=== PATIENT | male | born 1965 | race Caucasian/White ===

== ENCOUNTER 2017-04-13 05:58 | Emergency (ER) | payer BC ==
[2017-04-13 06:45] VITALS: TEMP 98.1; BMI 44.9
--- NOTE | 2017-04-13 07:24 | PDOC ---
History of Present Illness - General Chief Complaint: Back Pain Stated Complaint: PAIN Time Seen by Provider: 04/13/17 07:09 History Source: Patient Exam Limitations: No Limitations - History of Present Illness Initial Comments: 51 yo M history HTN, kidney stones presents with abrupt onset R flank pain at 4: 30 am today. He states that it woke him from sleep. Pain was sharp, colicky, R flank, nonradiating. He states that when he arrived in the ED, the pain suddenly became much worse, then it suddenly stopped approximately 1 hour ago. Denies N/V/D, f/c. No other associated symptoms. He has had kidney stones in the past, this is similar to past symptoms. Past History - Past Medical History Allergies/Adverse Reactions: Allergies Allergy/AdvReac Type Severity Reaction Status Date / Time No Known Drug Allergies Allergy Verified 02/06/14 12:14 Home Medications: Ambulatory Orders Oxycodone HCl/Acetaminophen [Percocet 7.5-325 mg Tablet] 1 - 2 tab PO Q4H Anemia: No Asthma: No Cancer: No Cardiac Disorders: No CVA: No COPD: No CHF: No Dementia: No Diabetes: No GI Disorders: No Disorders: Yes (kidney stones) HTN: Yes Hypercholesterolemia: No Liver Disease: No Suicide Attempt (Hx): No Seizures: No Thyroid Disease: No - Surgical History Abdominal Surgery: No Appendectomy: No Cardiac Surgery: No Cholecystectomy: No Lung Surgery: No Neurologic Surgery: No Orthopedic Surgery: Yes (rt. knee sx) - Immunization History Immunization Up to Date: Yes - Psycho/Social/Smoking Cessation Hx Anxiety: No Suicidal Ideation: No Smoking History: Never smoked Have you smoked in the past 12 months: No Hx Alcohol Use: Yes (socially) Drug/Substance Use Hx: No Substance Use Type: None Hx Substance Use Treatment: No Review of Systems - Review of Systems Able to Perform ROS?: Yes Comments:: GENERAL/CONSTITUTIONAL: No fever or chills. No weakness. HEAD, EYES, EARS, NOSE AND THROAT: No change in vision. No ear pain or discharge. No sore throat. CARDIOVASCULAR: No chest pain or shortness of breath. RESPIRATORY: No cough, wheezing, or hemoptysis. GASTROINTESTINAL: No nausea, vomiting, diarrhea or constipation. GENITOURINARY: No dysuria, frequency, or change in urination. MUSCULOSKELETAL: No joint or muscle swelling or pain. No neck pain. +Back pain. SKIN: No rash NEUROLOGIC: No headache, vertigo, loss of consciousness, or change in strength/ sensation. ENDOCRINE: No increased thirst. No abnormal weight change. HEMATOLOGIC/LYMPHATIC: No anemia, easy bleeding, or history of blood clots. ALLERGIC/IMMUNOLOGIC: No hives or skin allergy. *Physical Exam - Vital Signs Last Vital Signs Temp Pulse Resp BP Pulse Ox 98.1 F 83 16 188/94 96 04/13/17 06:25 04/13/17 06:25 04/13/17 06:25 04/13/17 06:25 04/13/17 06:25 - Physical Exam Comments: GENERAL: Awake, alert, and fully oriented, in no acute distress HEAD: No signs of trauma EYES: PERRLA, EOMI, sclera anicteric, conjunctiva clear ENT: Auricles normal inspection, hearing grossly normal, nares patent, oropharynx clear without exudates. Moist mucosa NECK: Normal ROM, supple, no lymphadenopathy, JVD, or masses LUNGS: Breath sounds equal, clear to auscultation bilaterally. No wheezes, and no crackles HEART: Regular rate and rhythm, normal S1 and S2, no murmurs, rubs or gallops ABDOMEN: Soft, nontender, normoactive bowel sounds. No guarding, no rebound. No masses. No CVAT. EXTREMITIES: Normal range of motion, no edema. No clubbing or cyanosis. No cords, erythema, or tenderness NEUROLOGICAL: Cranial nerves II through XII grossly intact. Normal speech, normal gait SKIN: Warm, Dry, normal turgor, no rashes or lesions noted. ED Treatment Course - LABORATORY CBC & Chemistry Diagram: 04/13/17 08:08 Medical Decision Making - Medical Decision Making Pt presented with flank pain c/w prior history of kidney stones. Pain was similar to prior stone. Pain resolved shortly after arrival in ED, and has not returned. BMP shows normal kidney function. No dysuria, no hematuria. Stable for DC home. *DC/Admit/Observation/Transfer Diagnosis at time of Disposition: Acute flank pain - Discharge Dispostion Disposition: HOME Condition at time of disposition: Stable Admit: No - Patient Instructions Printed Discharge Instructions: DI for Flank Pain
[2017-04-13 08:42] LABS: ANION GAP 8 (8-16); CALCIUM 8.4 mg/dL (8.5-10.1); CO2 25 mmol/L (21-32); CREATININE 0.8 mg/dL (0.7-1.3); GLUCOSE,RANDOM 205 mg/dL (74-106)
[2017-04-13 09:20] VITALS: BP 155/98; PULSE 78
== END 2017-04-13 09:19 | disposition home or self-care (01) ==
LOC: JER 05:58
DX: R10.31 Right lower quadrant pain (principal); I10 Essential (primary) hypertension; Z87.442 Personal history of urinary calculi
CPT/HCPCS: 36415; 80048; 99282-25

== ENCOUNTER 2017-04-24 11:36 | Inpatient (IN) | payer BC ==
[2017-04-24 11:57] VITALS: BMI 44.9
[2017-04-24 12:52] LABS: EOSINOPHIL 1.2 % (0-4.5); MCH 31.9 pg (25.7-33.7); MCHC 34.5 g/dl (32.0-35.9); MEAN CELL VOLUME 92.3 fl (80-96); NEUTROPHILS 72.8 % (42.8-82.8); PLATELET COUNT 200 K/MM3 (134-434); WHITE BLOOD COUNT 7.2 K/mm3 (4.0-10.0)
[2017-04-24] MEDS ORDERED: VANCOMYCIN 1 GRAM (PRE-DOCKED) 250 ML IVPB ONE (12:52)
--- NOTE | 2017-04-24 13:03 | PDOC ---
History of Present Illness - General Chief Complaint: Redness To Affected Area Stated Complaint: WOUND CHECK Time Seen by Provider: 04/24/17 12:08 History Source: Patient Exam Limitations: No Limitations - History of Present Illness Initial Comments: 04/24/17 12:48 Patient is a 51-year-old male, history of hypertension untreated. Presents to the ER with redness, swelling, and drainage to the LLE. Was seen at [facility] MD is being treated for cellulitis, ? spider bite to the LLE. Symptoms started on 04/17 as a redness to the area. Patient failed two outpatient courses of antibiotics. Was treated with Bactrim twice a day and Kelfex 500 mg three times a day. Area was marked by the treating physician. Redness has not expanded past the area but area is spontaneously draining, warm and red. Was instructed by the MD at [facility] to come to the ER for IV antibiotics. Past Medical History: HTN. Allergies: No known allergies Medications: Bactrim and Keflex Family History: Non-contributory Social History: Denies smoking, alcohol use, or IVDU Review of Systems GENERAL/CONSTITUTIONAL: No fever or chills. No weakness. No weight change. HEAD, EYES, EARS, NOSE AND THROAT: No change in vision. No ear pain or discharge. No sore throat. CARDIOVASCULAR: No chest pain or shortness of breath. RESPIRATORY: No cough, wheezing, or hemoptysis. GASTROINTESTINAL: No nausea, vomiting, diarrhea or constipation. No rectal bleeding. GENITOURINARY: No dysuria, frequency, or change in urination. MUSCULOSKELETAL: No joint or muscle swelling or pain. No neck or back pain. SKIN : No rash or easy bruising. Erythema, induration to the LLE with central punctum. + drainage. NEUROLOGIC: No headache, vertigo, loss of consciousness, or loss of sensation. HEMATOLOGIC/LYMPHATIC: No anemia, easy bleeding, or history of blood clots. No lymphadenopathy ALLERGIC/IMMUNOLOGIC: No hives or skin allergy. No latex allergy. Physical Exam: GENERAL: The patient is awake, alert, and fully oriented, in no acute distress. EYES: Pupils equal, round and reactive to light, extraocular movements intact, sclera anicteric, conjunctiva clear. ENT: Ears normal, nares patent, oropharynx clear without exudates. Moist mucous membranes. No uvula deviation NECK: Normal range of motion, supple without lymphadenopathy, JVD, or masses. LUNGS: Breath sounds equal, clear to auscultation bilaterally. No wheezes, and no crackles. HEART: Regular rate and rhythm, normal S1 and S2 without murmur, rub or gallop. ABDOMEN: Soft, nontender, normoactive bowel sounds. No guarding, no rebound. No masses. No bruising or abrasions MUSCULOSKELETAL: Normal range of motion, no edema. No clubbing or cyanosis. No cords, erythema, or tenderness. No CVA Tenderness with fist. NEUROLOGICAL: Cranial nerves II through XII grossly intact. Normal speech, normal gait. PSYCH: Normal mood, normal affect. SKIN: Warm, erythematous, indurated area to the left lower extremity measuring 25 cm by 22 cm, central punctum with drainage. Past History - Past Medical History Allergies/Adverse Reactions: Allergies Allergy/AdvReac Type Severity Reaction Status Date / Time No Known Drug Allergies Allergy Verified 04/24/17 11:57 Home Medications: Ambulatory Orders Oxycodone HCl/Acetaminophen [Percocet 10-325 mg Tablet] 1 each PO PRN 04/24/17 Acetaminophen [Tylenol .Regular Strength -] 650 mg PO Q6H PRN #0 tablet Amoxicillin/Potassium Clav [Amox-Clav 875-125 mg Tablet] 1 each PO BID #15 tablet 04/26/17 Lisinopril [Prinivil] 20 mg PO DAILY #30 tablet 04/26/17 Metformin HCl [Glucophage -] 500 mg PO BID #60 tablet 04/26/17 Anemia: No Asthma: No Cancer: No Cardiac Disorders: No CVA: No COPD: No CHF: No Dementia: No Diabetes: No GI Disorders: No Disorders: Yes (kidney stones) HTN: Yes Hypercholesterolemia: No Liver Disease: No Suicide Attempt (Hx): No Seizures: No Thyroid Disease: No - Surgical History Abdominal Surgery: No Appendectomy: No Cardiac Surgery: No Cholecystectomy: No Lung Surgery: No Neurologic Surgery: No Orthopedic Surgery: Yes (rt. knee sx) - Immunization History Immunization Up to Date: Yes - Psycho/Social/Smoking Cessation Hx Anxiety: No Suicidal Ideation: No Smoking History: Never smoked Have you smoked in the past 12 months: No Hx Alcohol Use: Yes (SOCIAL) Drug/Substance Use Hx: No Substance Use Type: None Hx Substance Use Treatment: No *Physical Exam - Vital Signs Last Vital Signs Temp Pulse Resp BP Pulse Ox 98.2 F 110 H 20 164/105 97 04/24/17 11:49 04/24/17 11:49 04/24/17 11:49 04/24/17 11:49 04/24/17 11:49 ED Treatment Course - LABORATORY CBC & Chemistry Diagram: 04/26/17 05:35 04/26/17 05:35 Medical Decision Making - Medical Decision Making 04/24/17 13:03 A/P: Patient is a 51-year-old L, morbidly obese, history of hypertension untreated resents for evaluation of cellulitis questionable spider bite to left lower extremity. Has been on by mouth antibiotics Keflex and Bactrim and symptoms are persisting and not improving. Was told to come to emergency department by urgent care for evaluation and IV antibiotics. Plan: CBC, CMP, blood cultures Wound culture Saline lock Vancomycin 1 g 04/24/17 15:19 I & D performed by resident. See procedure note. [employer] resident, spoke to Dr. Larsen. awaiting decision on admission. 04/24/17 15:[address] scan LLE. Dr. Leyva at bedside for consult US LLE. Admit to Dr. Ventura 04/24/17 15:58 *DC/Admit/Observation/Transfer Diagnosis at time of Disposition: admit - Discharge Dispostion Disposition: HOME Condition at time of disposition: Improved - Prescriptions
[2017-04-24 13:11] LABS: ALBUMIN 3.6 g/dl (3.4-5.0); ANION GAP 9 (8-16); BILIRUBIN,TOTAL 0.6 mg/dL (0.2-1.0); CALCIUM 8.5 mg/dL (8.5-10.1); CO2 25 mmol/L (21-32); CREATININE 0.7 mg/dL (0.7-1.3); GLUCOSE,RANDOM 194 mg/dL (74-106); SGPT/ALT 49 U/L (12-78); TOT PROT 7.4 g/dl (6.4-8.2)
[2017-04-24 13:12] LABS: ALK PHOS 91 U/L (45-117); SGOT/AST 41 U/L (15-37)
--- NOTE | 2017-04-24 14:54 | HP ---
CHIEF COMPLAINT: " I have redness on my leg" PCP: none HISTORY OF PRESENT ILLNESS: This is a 51 yo M with PMH of HTN, chronic back pain and nephrolithiasis, who presents due to LLE lesion. Patient states that he noticed medial calf redness and warmth a week ago. he visited acute care center where his leg was inspected , redness demarcated and was given keflex and bactrim. At that time there was no abscess and no I and D performed. Hew has been compliant with ABX. 3 days ago he visited his pain management physician who is also a surgeon, who noticed a central abscess area. He performed I and D w/o packing and expectorated a little bit of pus. Per urgent care instructions, he came to ED today because his leg did not appear to get better, although it also did not get worse. He states that the redness stayed well within demarcated area and seemed to fluctuate between paler and darker. The wound was draining a little purulent material but also formed a crust. He denies having much pain in the area, denies f/c or malaise. He denies history of skin infections, sick contacts or MRSA risk factors (no recent hospitalization, sand, cat litter, shellfish, wrestling mat contact). He denies weight loss, calf pain, knee or ankle pain/ swelling, presence of orthopedic hardware, prosthetic heart valves or hx of endocarditis, recent LLE surgery. ER course was notable for: (1)labs (2)IV vanco (3)I and D Recent Travel: denies PAST MEDICAL HISTORY: as above PAST SURGICAL HISTORY:R knee jeannine w/o hardware several yrs ago Social History: Smoking:denies Alcohol:denies Drugs: denies Family History: noncontributory Allergies No Known Drug Allergies Allergy (Verified 04/24/17 11:57) HOME MEDICATIONS: Home Medications Medication Instructions Recorded Cephalexin [Keflex] 500 mg PO TID 04/24/17 Oxycodone HCl/Acetaminophen 1 each PO PRN 04/24/17 [Percocet 10-325 mg Tablet] Sulfamethoxazole/Trimethoprim 1 tab PO BID 04/24/17 [Bactrim Ds -] REVIEW OF SYSTEMS CONSTITUTIONAL: Absent: fever, chills, malaise, loss of appetite, weight change HEENT: Absent: rhinorrhea, nasal congestion, throat pain CARDIOVASCULAR: Absent: chest pain, syncope, palpitations, peripheral edema RESPIRATORY: Absent: cough, shortness of breath, dyspnea with exertion, orthopnea, wheezing, stridor, hemoptysis GASTROINTESTINAL: Absent: abdominal pain, abdominal distension, nausea, vomiting, diarrhea, constipation, melena, hematochezia GENITOURINARY: Absent: dysuria MUSCULOSKELETAL: Absent: myalgia, arthralgia, joint swelling SKIN: Absent: rash, itching, pallor HEMATOLOGIC/IMMUNOLOGIC: Absent: easy bleeding, easy bruising, frequent infections ENDOCRINE: Absent: unexplained weight gain, unexplained weight loss NEUROLOGIC: Absent: headache, focal weakness or paresthesias PSYCHIATRIC: Absent: anxiety, depression PHYSICAL EXAMINATION Vital Signs - 24 hr 04/24/17 11:49 Temperature 98.2 F Pulse Rate 110 H Respiratory 20 Rate Blood Pressure 164/105 O2 Sat by Pulse 97 Oximetry (%) GENERAL: Awake, alert, and fully oriented, in no acute distress. HEAD: Normal with no signs of trauma. EYES: Pupils equal, round and reactive to light, extraocular movements intact, sclera anicteric, conjunctiva clear. No lid lag. EARS, NOSE, THROAT: Moist mucous membranes. NECK: supple without lymphadenopathy LUNGS: Breath sounds equal, clear to auscultation bilaterally HEART: Regular rate and rhythm, normal S1 and S2 without murmur ABDOMEN: Soft, obese, nontender, not distended, normoactive bowel sounds, no guarding, no rebound, no masses. MUSCULOSKELETAL: Normal range of motion in LLE joints. No bony deformities or tenderness. UPPER EXTREMITIES: 2+ pulses, warm, well-perfused. No cyanosis. No clubbing. No peripheral edema. RLE: 2+ DP pulse, warm, well-perfused. No calf tenderness. No peripheral edema. LLE: 2+ DP pulse, warm, well-perfused. No calf tenderness. trace peripheral edema. medial calf area of erythema w/o excessive warmth, nontender, central small area of induration s/o I and D packed with gauze. Ni purulence observed NEUROLOGICAL: Cranial nerves II-XII grossly intact. Normal speech. PSYCHIATRIC: Cooperative. Good eye contact. Appropriate mood and affect. SKIN: Warm, dry, lesion as above Laboratory Results - last 24 hr 04/24/17 04/24/17 12:45 12:49 WBC 7.2 D RBC 4.58 Hgb 14.6 Hct 42.3 MCV 92.3 MCH 31.9 MCHC 34.5 RDW 13.0 Plt Count 200 MPV 9.0 Neutrophils % 72.8 Lymphocytes % 17.9 D Monocytes % 7.1 Eosinophils % 1.2 Basophils % 1.0 Sodium 137 Potassium 4.3 Chloride 103 Carbon Dioxide 25 Anion Gap 9 BUN 13 Creatinine 0.7 Creat Clearance w eGFR > 60 Random Glucose 194 H Calcium 8.5 Total Bilirubin 0.6 D AST 41 H D ALT 49 D Alkaline Phosphatase 91 D Total Protein 7.4 Albumin 3.6 ASSESSMENT/PLAN: This is a 51 yo M with PMH of HTN, chronic back pain and nephrolithiasis, who presents due to LLE lesion LLE lesion Abscess with surounding cellulitis vs underlying mass -6 days of keflex+bactrim PO with minimal improvement altough optimal I and D with packing not performed prior -s/o I and D -no fever or white count but + neutrophilic predominance -Area of redness cool and nonpainful, atypical for infection, r/o underlying lass with Leg CT w contrast -ID on case, place on IV zosyn -f/u wound and blood culture HTN -norvasc PRN FEN -NS @ 125 -lytes stable -Na controlled diet -hep Dispo: obs med jeannine Problem List - Problem (1) Hypertension Code(s): I10 - ESSENTIAL (PRIMARY) HYPERTENSION (2) Leg edema Code(s): R60.0 - LOCALIZED EDEMA (3) Skin lesion of left lower extremity Code(s): L98.9 - DISORDER OF THE SKIN AND SUBCUTANEOUS TISSUE, UNSPECIFIED (4) Cutaneous abscess of left lower extremity Code(s): L02.416 - CUTANEOUS ABSCESS OF LEFT LOWER LIMB (5) Chronic back pain Code(s): M54.9 - DORSALGIA, UNSPECIFIED G89.29 - OTHER CHRONIC PAIN Visit type - Emergency Visit Emergency Visit: Yes Care time: The patient presented to the Emergency Department on the above date and was hospitalized for further evaluation of their emergent condition. - New Patient This patient is new to me today: Yes Date on this admission: 04/24/17 - Critical Care Critical Care patient: No
[2017-04-24] MEDS ORDERED: IBUPROFEN 600 MG TABLET (FP) PO ONE (15:07)
[2017-04-24] MEDS ORDERED: PIPERACILLIN/TAZOB 3.375 GM 3.375 GM in DEXTROSE 5%-WATER - 50 ML IVPB ONE (15:39)
--- NOTE | 2017-04-24 15:40 | HP ---
CHIEF COMPLAINT: LLE redness/swelling/drainage PCP: None HISTORY OF PRESENT ILLNESS: 51 year old m with a pmh of HTN, chronic back pain, and recurrent nephrolithiasis presents to the ED with a 1 week history of LLE redness, swelling, and drainage. Patient states he was at a picnic when he first noticed his LLE was red. Over the next few days it spread and become redder. He went to [facility], where he was given a course of bactrim BID and Keflex TID on 04/18. Patient has been compliant with his medication. Patient went to his pain doctor on 04/21, where the pain doctor lanced a boil and expressed minimal pus. He was told if it did not improve by Tuesday to come to the ED for IV abx. The Urgent care doctor had demarcated the boundary of redness, which the patient states "the redness has remained within." Patient denies any fever, chills, shortness of breath, chest pain, hx of diabetes, hx of heart valve or mechanical joint issues, hx of endocarditis. ER course was notable for: (1) Labs (2) Gram stain (3) Vancomycin Recent Travel: no PAST MEDICAL HISTORY: HTN, nephrolithiasis, and chronic back pain PAST SURGICAL HISTORY: Right knee surgery- 2010, Tonsillectomy as a child Social History: Smoking:denies Alcohol:denies Drugs:denies Family History: mother in car accident 25 years ago. Father has HTN and "some bone cancer" Allergies No Known Drug Allergies Allergy (Verified 04/24/17 11:57) HOME MEDICATIONS: Home Medications Medication Instructions Recorded Cephalexin [Keflex] 500 mg PO TID 04/24/17 Oxycodone HCl/Acetaminophen 1 each PO PRN 04/24/17 [Percocet 10-325 mg Tablet] Sulfamethoxazole/Trimethoprim 1 tab PO BID 04/24/17 [Bactrim Ds -] REVIEW OF SYSTEMS CONSTITUTIONAL: Absent: fever, chills, diaphoresis, generalized weakness, malaise, loss of appetite, weight change HEENT: Absent: rhinorrhea, nasal congestion, throat pain, throat swelling, difficulty swallowing, mouth swelling, ear pain, eye pain, visual changes CARDIOVASCULAR: Absent: chest pain, syncope, palpitations, irregular heart rate, lightheadedness , peripheral edema RESPIRATORY: Absent: cough, shortness of breath, dyspnea with exertion, orthopnea, wheezing, stridor, hemoptysis GASTROINTESTINAL: Absent: abdominal pain, abdominal distension, nausea, vomiting, diarrhea, constipation, melena, hematochezia GENITOURINARY: Absent: dysuria, frequency, urgency, hesitancy, hematuria, flank pain, genital pain MUSCULOSKELETAL: Absent: myalgia, arthralgia, joint swelling, back pain, neck pain SKIN: Absent: rash, itching, pallor present: Erythema, induration to the LLE HEMATOLOGIC/IMMUNOLOGIC: Absent: easy bleeding, easy bruising, lymphadenopathy, frequent infections ENDOCRINE: Absent: unexplained weight gain, unexplained weight loss, heat intolerance, cold intolerance NEUROLOGIC: Absent: headache, focal weakness or paresthesias, dizziness, unsteady gait, seizure, mental status changes, bladder or bowel incontinence PSYCHIATRIC: Absent: anxiety, depression, suicidal or homicidal ideation, hallucinations. PHYSICAL EXAMINATION Vital Signs - 24 hr 04/24/17 04/24/17 11:49 15:15 Temperature 98.2 F 99 F Pulse Rate 110 H Pulse Rate [ 87 Apical] Respiratory 20 18 Rate Blood Pressure 164/105 Blood Pressure 174/109 [Right Arm] O2 Sat by Pulse 97 Oximetry (%) GENERAL: Awake, alert, and fully oriented, in no acute distress. HEAD: Normal with no signs of trauma. EYES: extraocular movements intact, sclera anicteric, conjunctiva clear. No lid lag. EARS, NOSE, THROAT: oropharynx clear without exudates. Moist mucous membranes. NECK: Normal range of motion, supple without lymphadenopathy, JVD, or masses. LUNGS: Breath sounds equal, clear to auscultation bilaterally. No wheezes, and no crackles. No accessory muscle use. HEART: Regular rate and rhythm, normal S1 and S2 without murmur, rub or gallop. ABDOMEN: Soft, nontender, not distended, normoactive bowel sounds, no guarding, no rebound, no masses. No hepatomegaly or splenomegaly. MUSCULOSKELETAL: Normal range of motion at knee and ankle joints. No bony deformities or tenderness. UPPER EXTREMITIES: 2+ pulses, warm, well-perfused. No cyanosis. No clubbing. No peripheral edema. LOWER EXTREMITIES: 2+ pulses, warm, well-perfused. No calf tenderness. No peripheral edema. Warm, erythematous, indurated area to the left lower extremity s/p I&D with packing. No purulent discharge NEUROLOGICAL: Cranial nerves II-XII intact. Normal speech. Normal gait. PSYCHIATRIC: Cooperative. Good eye contact. Appropriate mood and affect. SKIN: Warm, erythematous, indurated area to the left lower extremity s/p I&D with packing. Laboratory Results - last 24 hr 04/24/17 04/24/17 12:45 12:49 WBC 7.2 D RBC 4.58 Hgb 14.6 Hct 42.3 MCV 92.3 MCH 31.9 MCHC 34.5 RDW 13.0 Plt Count 200 MPV 9.0 Neutrophils % 72.8 Lymphocytes % 17.9 D Monocytes % 7.1 Eosinophils % 1.2 Basophils % 1.0 Sodium 137 Potassium 4.3 Chloride 103 Carbon Dioxide 25 Anion Gap 9 BUN 13 Creatinine 0.7 Creat Clearance w eGFR > 60 Random Glucose 194 H Calcium 8.5 Total Bilirubin 0.6 D AST 41 H D ALT 49 D Alkaline Phosphatase 91 D Total Protein 7.4 Albumin 3.6 ASSESSMENT/PLAN: 51 yo M with pmh of HTN, nephrolithiasis, and chronic back pain presenting to the ED with 1 week history of redness, swelling, and drainage of the LLE. #LLE cellulitis -1 week failure of bactrim and keflex PO -Given 1 dose of Vancomycin in the ED -s/p I&D in the ER -Started on Zosyn in the ED -ID consulted -f/u wound culture -CT leg and duplex venous doppler ordered to evaluate for mass or any DVT #HTN -Patient has history of HTN -Not on meds for 2 years -Started Lisinopril 10 mg PO Daily, uptitrate as needed #Hyperglycemia -Sugar of 194 -Does not have a PCP -Will get HbA1c -BGM with ISS ACHS #Chronic back pain -Takes percocet at home PRN -Oxycodone/Acetominphen 10/650 PO Q6 PRN #DVT ppx -Heparin 5000 units SQ BID #FE/GI -IV NS 125 cc/hr Visit type - Emergency Visit Emergency Visit: Yes ED Registration Date: 04/24/17 Care time: The patient presented to the Emergency Department on the above date and was hospitalized for further evaluation of their emergent condition. - New Patient This patient is new to me today: Yes Date on this admission: 04/24/17 - Critical Care Critical Care patient: No
[2017-04-24] MEDS ORDERED: PIPERACILLIN/TAZOB 3.375 GM 50 ML IVPB ONE (15:42)
[2017-04-24] MEDS ORDERED: VANCOMYCIN 1,000 MG in DEXTROSE 5%-WATER - 250 ML IVPB ONE (16:37)
[2017-04-24] MEDS ORDERED: OXYCODONE/APAP 5/325MG COMBO TABLET PO PRN (16:40)
--- NOTE | 2017-04-24 16:40 | PN ---
Teaching Attending Note Name of Resident: Vahid Billings ATTENDING PHYSICIAN STATEMENT I saw and evaluated the patient. I reviewed the resident's note and discussed the case with the resident. I agree with the resident's findings and plan as documented. SUBJECTIVE: This is a 51-year-old man with a history of HTN, kidney stones, chronic back pain secondary herniated discs who comes to the ER complaining of redness of his left leg. He says that he was at a picnic on April 16. That evening , while at [place]ahai, a family member noticed that his lower left leg was red. He says it was swollen and red but not painful or itchy. He thought he might have been bitten by an insect while at the picnic. The next day, he thought it looked better. On April 18, he went to urgent care because the redness was increasing. He was treated with Keflex and Bactrim. The area of redness was outlined. He was advised to return the next day at which time it was no worse but also not any better. He was advised to continue the antibiotics and return in 2 days. On April 20, he noticed blistering of the area. He saw his pain management physician who attempted an I&D but only a small amount of bloody fluid was drained. He returned to urgent care on April 21 and he was advised to follow-up in another 2 days. Since there continued to be no improvement, he decided to come to the ER instead. He denies fever, chills, left leg pain. I&D was attempted in the ED. A small amount of pus was drained, followed by blood. OBJECTIVE: Vital Signs Period Temp Pulse Resp BP Sys/Olmstead Pulse Ox Last 24 Hr 98.2 F-99 F 87-110 18-20 164-174/105-109 97 HEART: S1S2, RRR LUNGS: Clear ABDOMEN: Obese, soft, non-tender, non-distended, normal BS EXTREMITIES: Erythema and edema without warmth or tenderness of lower left leg. Bloody drainage from I&D site ASSESSMENT AND PLAN: his is a 51-year-old man with a history of HTN, kidney stones, chronic back pain secondary herniated discs who presented to the ER with of redness of his left leg x 1 week. 1. Left leg cellulitis - Failed outpatient therapy - Evaluate for abscess, other underlying pathology - CT of leg, venous doppler - Vancomycin given in ER - Start Zosyn - Follow-up wound culture - ID consult 2. Hyperglycemia - On two ER visits, patient had random glucose 205 (04/13/17) and 194 (04/24/17) - Fingersticks with Novolog sliding scale - Check HgbA1c 3. Hypertension - Patient is on no medication - BPs have been 188/94 and 155/98 (04/13/17), 164/105 and 174/109 (04/24/17) - Start Lisinopril 4. Chronic back pain secondary to herniated discs - Patient follows with pain management where he receives steroid injections 5. Morbid obesity
[2017-04-24] MEDS ORDERED: oxyCODONE HCL 5 MG TABLET PO PRN (16:58)
[2017-04-24] MEDS ORDERED: amLODIPine BESYLATE 5 MG TABLET (FP) PO SCH (17:00)
[2017-04-24] MEDS ORDERED: amLODIPine BESYLATE 5 MG TABLET (FP) ONE (17:03)
[2017-04-24] MEDS: SODIUM CHLORIDE 1,000 ML IV SCH ×2 (17:10→20:24)
[2017-04-24] MEDS ORDERED: LISINOPRIL 10 MG TABLET (FP) PO ONE ×2 (17:44→20:37)
[2017-04-24] MEDS ORDERED: LISINOPRIL 10 MG TABLET (FP) PO SCH (18:00)
[2017-04-24] MEDS: HEPARIN NA (PORCINE) 5,000 UNITS/ML 1ML VIAL SQ SCH (21:11)
[2017-04-24] MEDS: INSULIN SLIDING SCALE (NOVOLOG) 1 VIAL SQ SCH (21:14)
--- NOTE | 2017-04-24 21:20 | CONSULT ---
Consult Consult Specialty:: infectious diseases Referred by:: Reason for Consultation:: cellulitis/abscess of the rt lower ext - History of Present Illness Chief Complaint: swelling and discharge of the rt ext History of Present Illness: 51 year old m with a pmh of HTN, chronic back pain, and recurrent nephrolithiasis presents to the ED with a 1 week history of LLE redness, swelling, and drainage. Patient states he was at a picnic when he first noticed his LLE was red. Over the next few days it spread and become redder. He went to [facility]gent care, where he was given a course of bactrim BID and Keflex TID on 04/18. Patient has been compliant with his medication. Patient went to his pain doctor on 04/21, where the pain doctor lanced a boil and expressed minimal pus. He was told if it did not improve by Tuesday to come to the ED for IV abx. The Urgent care doctor had demarcated the boundary of redness, which the patient states "the redness has remained within." The above was the history of the patient when the patient came into the hospital when i evalauted the wound it looked more like a localized swelling and according to the er team when the wound was lanced they noticed mostly blood surrounding erythema noted,patient denies any fever , - History Source History Provided By: Patient Limitations to Obtaining History: No Limitations - Past Medical History Cardio/Vascular: Yes: HTN Renal/: Yes: Renal Calculi - Alcohol/Substance Use Hx Alcohol Use: Yes (SOCIAL) History of Substance Use: reports: None - Smoking History Smoking history: Never smoked Have you smoked in the past 12 months: No - Social History Usual Living Arrangement: With Parent ADL: Independent Home Medications - Allergies Allergies/Adverse Reactions: Allergies Allergy/AdvReac Type Severity Reaction Status Date / Time No Known Drug Allergies Allergy Verified 04/24/17 11:57 - Home Medications Home Medications: Ambulatory Orders Cephalexin [Keflex] 500 mg PO TID 04/24/17 Oxycodone HCl/Acetaminophen [Percocet 10-325 mg Tablet] 1 each PO PRN 04/24/17 Sulfamethoxazole/Trimethoprim [Bactrim Ds -] 1 tab PO BID 04/24/17 Family Disease History - Family Disease History Family Disease History: Heart Disease: Father (HTN) Review of Systems - Review of Systems Constitutional: reports: No Symptoms Eyes: reports: No Symptoms HENT: reports: No Symptoms Neck: reports: No Symptoms Cardiovascular: reports: No Symptoms Respiratory: reports: No Symptoms Gastrointestinal: reports: No Symptoms Genitourinary: reports: No Symptoms Musculoskeletal: reports: Other Integumentary: reports: Erythema Neurological: reports: No Symptoms Endocrine: reports: No Symptoms Hematology/Lymphatic: reports: No Symptoms Psychiatric: reports: No Symptoms Physical Exam Vital Signs: Vital Signs Temperature 98.2 F 04/24/17 17:20 Pulse Rate 86 04/24/17 17:20 Respiratory Rate 18 04/24/17 17:20 Blood Pressure 156/81 04/24/17 17:20 O2 Sat by Pulse Oximetry (%) 95 04/24/17 17:20 Constitutional: Yes: No Distress, Calm, Obese HENT: Yes: Atraumatic Neck: Yes: Supple Cardiovascular: Yes: Regular Rate and Rhythm Respiratory: Yes: Regular, CTA Bilaterally Gastrointestinal: Yes: Normal Bowel Sounds, Soft Musculoskeletal: Yes: WNL Extremities: Yes: Other Integumentary: Yes: Erythema, Incision, Other Wound/Incision: Yes: Draining, Reddened Neurological: Yes: Alert, Oriented Psychiatric: Yes: Alert, Oriented Assessment/Plan 51 yo M with pmh of HTN, nephrolithiasis, and chronic back pain presenting to the ED with 1 week history of redness, swelling, and drainage of the LLE. #LLE cellulitis #HTN #Hyperglycemia looking at this picture and the wound it does not look classical as an abscess worry is it is there any growth inside as according to him it has grown from inside out plan we should get a ct scan of the leg cx have been send will start on abx will see how the swelling responds
[2017-04-24] MEDS ORDERED: VANCOMYCIN 1,000 MG in DEXTROSE 5%-WATER - 250 ML IVPB SCH (22:00)
[2017-04-25] MEDS: PIPERACILLIN/TAZOB 3.375 GM 50 ML IVPB SCH ×3 (02:35→17:16)
[2017-04-25] MEDS: INSULIN SLIDING SCALE (NOVOLOG) 1 VIAL SQ SCH ×4 (06:17→22:05)
[2017-04-25 07:16] LABS: BASOPHIL 0.7 % (0-2.0); EOSINOPHIL 1.4 % (0-4.5); MCH 32.5 pg (25.7-33.7); MEAN CELL VOLUME 92.8 fl (80-96); MEAN PLT VOLUME 9.1 fl (7.5-11.1); NEUTROPHILS 70.5 % (42.8-82.8); PLATELET COUNT 207 K/MM3 (134-434); RDW 12.9 % (11.9-15.9); WHITE BLOOD COUNT 7.4 K/mm3 (4.0-10.0)
[2017-04-25 07:37] LABS: ALBUMIN 3.2 g/dl (3.4-5.0); ANION GAP 6 (8-16); CALCIUM 8.2 mg/dL (8.5-10.1); CO2 28 mmol/L (21-32); GLUCOSE,RANDOM 171 mg/dL (74-106); SGOT/AST 33 U/L (15-37); SGPT/ALT 40 U/L (12-78)
[2017-04-25 07:40] LABS: ALK PHOS 81 U/L (45-117); C-REACTIVE PROTEIN 1.7 MG/DL (0.00-0.3); CREATININE 0.6 mg/dL (0.7-1.3); TOT PROT 6.7 g/dl (6.4-8.2)
[2017-04-25] MEDS ORDERED: LISINOPRIL 10 MG TABLET (FP) PO SCH (10:00)
[2017-04-25] MEDS: HEPARIN NA (PORCINE) 5,000 UNITS/ML 1ML VIAL SQ SCH ×2 (10:17→22:02)
[2017-04-25 11:03] LABS: ERYTHROCYTE SEDIMENTATION RATE 47 mm/hr (0-20)
[2017-04-25] MEDS: SODIUM CHLORIDE 1,000 ML IV SCH ×2 (12:27→17:16)
--- NOTE | 2017-04-25 14:32 | PN ---
Teaching Attending Note Name of Resident: Vahid Billings ATTENDING PHYSICIAN STATEMENT I saw and evaluated the patient. I reviewed the resident's note and discussed the case with the resident. I agree with the resident's findings and plan as documented. SUBJECTIVE: No complaints. OBJECTIVE: Vital Signs Period Temp Pulse Resp BP Sys/Olmstead Pulse Ox Last 24 Hr 97.9 F-99 F 75-88 18-20 139-174/71-109 95-98 HEART: S1S2, RRR LUNGS: Clear ABDOMEN: Obese, soft, non-tender, non-distended, normal BS EXTREMITIES: Decreased edema and erythema of left leg ASSESSMENT AND PLAN: This is a 51-year-old man with a history of HTN, kidney stones, chronic back pain secondary herniated discs who presented to the ER with of redness of his left leg x 1 week. 1. Left leg cellulitis - Failed outpatient therapy - Venous doppler negative for DVT - CT shows subcutaneous edema - Continue Zosyn - Follow-up wound culture 2. Type 2 diabetes mellitus - HgbA1c 8.6 - Continue Novolog sliding scale - Start Metformin 3. Hypertension - Lisinopril started 4. Chronic back pain secondary to herniated discs - Patient follows with pain management where he receives steroid injections 5. Morbid obesity
--- NOTE | 2017-04-25 14:39 | PN ---
Physical Exam: SUBJECTIVE: Patient seen and examined No acute events overnight. No complaints today. Patient states redness is improving. OBJECTIVE: Vital Signs Period Temp Pulse Resp BP Sys/Olmstead Pulse Ox Last 24 Hr 97.9 F-98.4 F 75-93 18-20 139-162/71-98 98 GENERAL: Awake, alert, and fully oriented, in no acute distress. HEAD: Normal with no signs of trauma. EYES: extraocular movements intact, sclera anicteric, conjunctiva clear. No lid lag. EARS, NOSE, THROAT: oropharynx clear without exudates. Moist mucous membranes. NECK: Normal range of motion, supple without lymphadenopathy, JVD, or masses. LUNGS: Breath sounds equal, clear to auscultation bilaterally. No wheezes, and no crackles. No accessory muscle use. HEART: Regular rate and rhythm, normal S1 and S2 without murmur, rub or gallop. ABDOMEN: Soft, nontender, not distended, normoactive bowel sounds, no guarding, no rebound, no masses. No hepatomegaly or splenomegaly. MUSCULOSKELETAL: Normal range of motion at knee and ankle joints. No bony deformities or tenderness. UPPER EXTREMITIES: 2+ radialpulses, warm, well-perfused. No cyanosis. No clubbing. No peripheral edema. LOWER EXTREMITIES: 2+ dp pulses, warm, well-perfused. No calf tenderness. No peripheral edema. LLE: Warm, erythematous, indurated area to the left lower extremity. wound repacked today. No purulent discharge. Improved from yesterday NEUROLOGICAL: Cranial nerves II-XII intact. Normal speech. Normal gait. PSYCHIATRIC: Cooperative. Good eye contact. Appropriate mood and affect. Laboratory Results - last 24 hr 04/24/17 04/25/17 04/25/17 21:14 05:40 06:25 WBC RBC Hgb Hct MCV MCH MCHC RDW Plt Count MPV Neutrophils % Lymphocytes % Monocytes % Eosinophils % Basophils % ESR Sodium 139 Potassium 4.1 Chloride 105 Carbon Dioxide 28 Anion Gap 6 L BUN 8 D Creatinine 0.6 L Creat Clearance w eGFR > 60 POC Glucometer 146 160 Random Glucose 171 H Hemoglobin A1c % Calcium 8.2 L Total Bilirubin 1.0 D AST 33 ALT 40 Alkaline Phosphatase 81 C-Reactive Protein 1.7 H Total Protein 6.7 Albumin 3.2 L 04/25/17 04/25/17 04/25/17 06:25 06:25 11:41 WBC 7.4 RBC 4.25 Hgb 13.8 Hct 39.5 MCV 92.8 MCH 32.5 MCHC 35.0 RDW 12.9 Plt Count 207 MPV 9.1 Neutrophils % 70.5 Lymphocytes % 20.1 Monocytes % 7.3 Eosinophils % 1.4 Basophils % 0.7 ESR 47 H Sodium Potassium Chloride Carbon Dioxide Anion Gap BUN Creatinine Creat Clearance w eGFR POC Glucometer 165 Random Glucose Hemoglobin A1c % 8.6 H Calcium Total Bilirubin AST ALT Alkaline Phosphatase C-Reactive Protein Total Protein Albumin Active Medications Generic Name Dose Route Start Last Admin Trade Name Freq PRN Reason Stop Dose Admin Acetaminophen 650 mg 04/24/17 16:58 Tylenol - PO Q6H PRN PAIN LEVEL 6-10 Heparin Sodium (Porcine) 5,000 unit 04/24/17 22:00 04/25/17 10:17 Heparin - SQ 5,000 unit BID HUMA Administration Sodium Chloride 1,000 mls @ 125 mls/hr 04/24/17 16:30 04/25/17 12:27 Normal Saline - IV 125 mls/hr ASDIR HUMA Administration Piperacillin Sod/Tazobactam Sod 50 mls @ 100 mls/hr 04/25/17 02:00 04/25/17 10: 16 Zosyn 3.375gm Ivpb (Pre-Docked) IVPB 100 mls/hr Q8H-IV HUMA Administration Protocol Insulin Aspart 1 vial 04/24/17 22:00 04/25/17 11:43 Novolog Vial Sliding Scale - SQ Not Given ACHS HUMA Protocol Lisinopril 10 mg 04/25/17 10:00 04/25/17 10:17 Prinivil PO 10 mg DAILY HUMA Administration Oxycodone HCl 10 mg 04/24/17 16:58 Roxicodone - PO Q6H PRN PAIN LEVEL 6-10 ASSESSMENT/PLAN: 51 yo M with pmh of HTN, nephrolithiasis, and chronic back pain presenting to the ED with 1 week history of redness, swelling, and drainage of the LLE. #LLE cellulitis -1 week failure of bactrim and keflex PO -Given 1 dose of Vancomycin in the ED -s/p I&D in the ER -Continue Zosyn 3.375 gm IVPb -ID is following, Dr. Leyva -wound cx: presumptive MSSA, pending sensitivities -CT LLE: Negative for any bony process #HTN -Patient has history of HTN -162/98 -Not on meds for 2 years -Started Lisinopril 10 mg PO Daily, uptitrate as needed #Hyperglycemia -Sugar of 194 -Does not have a PCP -A1c of 8.6 -BGM with ISS ACHS -Start metformin 500mg PO daily #Chronic back pain -Takes percocet at home PRN -Oxycodone/Acetominphen 10/650 PO Q6 PRN #DVT ppx -Heparin 5000 units SQ BID #FE/GI -IV NS 125 cc/hr Visit type - Emergency Visit Emergency Visit: No - New Patient This patient is new to me today: No - Critical Care Critical Care patient: No
--- NOTE | 2017-04-25 14:56 | PN ---
Progress Note, Physician History of Present Illness: patient doing much better no complaints dressing in place drainage present - Current Medication List Current Medications: Active Medications Acetaminophen (Tylenol -) 650 mg PO Q6H PRN PRN Reason: PAIN LEVEL 6-10 Heparin Sodium (Porcine) (Heparin -) 5,000 unit SQ BID ON LICENSE OF [facility] Last Admin: 04/25/17 10:17 Dose: 5,000 unit Sodium Chloride (Normal Saline -) 1,000 mls @ 125 mls/hr IV ASDIR ON LICENSE OF [facility] Last Admin: 04/25/17 12:27 Dose: 125 mls/hr Piperacillin Sod/Tazobactam Sod (Zosyn 3.375gm Ivpb (Pre-Docked)) 50 mls @ 100 mls/hr IVPB Q8H-IV HUMA PRN Reason: Protocol Last Admin: 04/25/17 10:16 Dose: 100 mls/hr Insulin Aspart (Novolog Vial Sliding Scale -) 1 vial SQ ACHS ON LICENSE OF [facility] PRN Reason: Protocol Last Admin: 04/25/17 11:43 Dose: Not Given Lisinopril (Prinivil) 10 mg PO DAILY ON LICENSE OF [facility] Last Admin: 04/25/17 10:17 Dose: 10 mg Oxycodone HCl (Roxicodone -) 10 mg PO Q6H PRN PRN Reason: PAIN LEVEL 6-10 - Objective Vital Signs: Vital Signs Temperature 98 F 04/25/17 14:00 Pulse Rate 93 H 04/25/17 14:00 Respiratory Rate 20 04/25/17 14:00 Blood Pressure 162/98 04/25/17 14:00 O2 Sat by Pulse Oximetry (%) 98 04/25/17 00:21 Constitutional: Yes: No Distress, Calm, Obese Cardiovascular: Yes: Regular Rate and Rhythm Respiratory: Yes: Regular, CTA Bilaterally Gastrointestinal: Yes: Normal Bowel Sounds, Soft Musculoskeletal: Yes: WNL Extremities: Yes: Other Wound/Incision: Yes: Bleeding, Other Neurological: Yes: Alert, Oriented Psychiatric: Yes: Alert, Oriented Labs: CBC, BMP 04/25/17 06:25 04/25/17 06:25 - ....Imaging Cat Scan: Report Reviewed, Image Reviewed Assessment/Plan 51 yo M with pmh of HTN, nephrolithiasis, and chronic back pain presenting to the ED with 1 week history of redness, swelling, and drainage of the LLE. #LLE cellulitis #HTN #Hyperglycemia plan cx report noted await for sensitivites
[2017-04-25] MEDS: ACETAMINOPHEN 325 MG TABLET (FP) PO PRN (16:48)
[2017-04-25] MEDS ORDERED: INSULIN (NOVOLOG) ASPART 100 UNITS/ML 10ML VIAL ONE (22:54)
[2017-04-26] MEDS: PIPERACILLIN/TAZOB 3.375 GM 50 ML IVPB SCH ×2 (01:38→10:21)
[2017-04-26] MEDS: ACETAMINOPHEN 325 MG TABLET (FP) PO PRN (01:39)
[2017-04-26] MEDS ORDERED: LISINOPRIL 10 MG TABLET (FP) PO ONE (04:20)
[2017-04-26] MEDS: INSULIN SLIDING SCALE (NOVOLOG) 1 VIAL SQ SCH ×2 (06:46→11:39)
[2017-04-26] MEDS ORDERED: metFORMIN HCL 500 MG TABLET (FP) PO SCH (07:00)
[2017-04-26 07:21] LABS: BASOPHIL 0.4 % (0-2.0); EOSINOPHIL 0.7 % (0-4.5); MCH 31.9 pg (25.7-33.7); MCHC 34.5 g/dl (32.0-35.9); MEAN CELL VOLUME 92.5 fl (80-96); MEAN PLT VOLUME 9.3 fl (7.5-11.1); NEUTROPHILS 72.2 % (42.8-82.8); PLATELET COUNT 220 K/MM3 (134-434); RDW 12.9 % (11.9-15.9); WHITE BLOOD COUNT 8.3 K/mm3 (4.0-10.0)
[2017-04-26 07:53] LABS: ALBUMIN 3.3 g/dl (3.4-5.0); ANION GAP 8 (8-16); CALCIUM 8.7 mg/dL (8.5-10.1); CO2 29 mmol/L (21-32); CREATININE 0.7 mg/dL (0.7-1.3); GLUCOSE,RANDOM 153 mg/dL (74-106); SGOT/AST 48 U/L (15-37); SGPT/ALT 47 U/L (12-78)
[2017-04-26 07:55] LABS: ALK PHOS 78 U/L (45-117); BILIRUBIN,TOTAL 1.1 mg/dL (0.2-1.0); TOT PROT 7.1 g/dl (6.4-8.2)
[2017-04-26] MEDS ORDERED: LISINOPRIL 20 MG TABLET (FP) PO SCH (10:00)
[2017-04-26] MEDS: HEPARIN NA (PORCINE) 5,000 UNITS/ML 1ML VIAL SQ SCH (10:21)
[2017-04-26 11:09] VITALS: BP 159/71
--- NOTE | 2017-04-26 14:05 | PN ---
Teaching Attending Note Name of Resident: Vahid Billings ATTENDING PHYSICIAN STATEMENT I saw and evaluated the patient. I reviewed the resident's note and discussed the case with the resident. I agree with the resident's findings and plan as documented. SUBJECTIVE: No complaints. OBJECTIVE: Vital Signs Period Temp Pulse Resp BP Sys/Olmstead Pulse Ox Last 24 Hr 98 F-98.8 F 80-88 18-20 152-164/71-99 98 HEART: S1S2, RRR LUNGS: Clear ABDOMEN: Obese, soft, non-tender, non-distended, normal BS EXTREMITIES: Decreased edema and erythema of left leg ASSESSMENT AND PLAN: This is a 51-year-old man with a history of HTN, kidney stones, chronic back pain secondary herniated discs who presented to the ER with of redness of his left leg x 1 week. 1. Left leg cellulitis and abscess - Failed outpatient therapy - Venous doppler negative for DVT - CT shows subcutaneous edema - Improving on Zosyn - Wound culture growing MSSA - ID follow-up for change to oral antibiotics 2. Type 2 diabetes mellitus - HgbA1c 8.6 - Continue Novolog sliding scale - Metformin started 3. Hypertension - Continue Lisinopril 4. Chronic back pain secondary to herniated discs - Patient follows with pain management where he receives steroid injections 5. Morbid obesity
[2017-04-26] MEDS ORDERED: PIPERACILLIN/TAZOB 3.375 GM 3.375 GM in DEXTROSE 5%-WATER - 50 ML IVPB SCH (14:21)
[2017-04-26 14:36] VITALS: PULSE 85; TEMP 98.1
--- NOTE | 2017-04-26 14:49 | PN ---
Progress Note, Physician History of Present Illness: patient feeling much better leg looks much better - Current Medication List Current Medications: Active Medications Acetaminophen (Tylenol -) 650 mg PO Q6H PRN PRN Reason: PAIN LEVEL 6-10 Last Admin: 04/26/17 01:39 Dose: 650 mg Heparin Sodium (Porcine) (Heparin -) 5,000 unit SQ BID [facility] Last Admin: 04/26/17 10:21 Dose: 5,000 unit Sodium Chloride (Normal Saline -) 1,000 mls @ 125 mls/hr IV ASDIR [facility] Last Admin: 04/25/17 17:16 Dose: Not Given Piperacillin Sod/Tazobactam (Sod 3.375 gm/ Dextrose) 50 mls @ 100 mls/hr IVPB Q8H-IV HUMA PRN Reason: Protocol Insulin Aspart (Novolog Vial Sliding Scale -) 1 vial SQ ACHS HUMA PRN Reason: Protocol Last Admin: 04/26/17 11:39 Dose: Not Given Lisinopril (Prinivil) 20 mg PO DAILY [facility] Last Admin: 04/26/17 10:21 Dose: 20 mg Metformin HCl (Glucophage -) 500 mg PO DAILY@0700 [facility] Last Admin: 04/26/17 06:46 Dose: 500 mg Oxycodone HCl (Roxicodone -) 10 mg PO Q6H PRN PRN Reason: PAIN LEVEL 6-10 - Objective Vital Signs: Vital Signs Temperature 98.1 F 04/26/17 14:00 Pulse Rate 85 04/26/17 14:00 Respiratory Rate 20 04/26/17 14:00 Blood Pressure 159/71 04/26/17 10:00 O2 Sat by Pulse Oximetry (%) 98 04/25/17 21:00 Constitutional: Yes: No Distress, Calm, Obese Cardiovascular: Yes: Regular Rate and Rhythm Respiratory: Yes: Regular, CTA Bilaterally Gastrointestinal: Yes: Normal Bowel Sounds, Soft Musculoskeletal: Yes: WNL Extremities: Yes: Other Wound/Incision: Yes: Dressing Dry and Intact Neurological: Yes: Alert, Oriented Psychiatric: Yes: Alert, Oriented Labs: CBC, BMP 04/26/17 05:35 04/26/17 05:35 Assessment/Plan 51 yo M with pmh of HTN, nephrolithiasis, and chronic back pain presenting to the ED with 1 week history of redness, swelling, and drainage of the LLE. #LLE cellulitis #HTN #Hyperglycemia plan cx report noted sensitivites noted can switch to augmentin 875 mg bid for 10 days wound care
--- NOTE | 2017-04-26 15:59 | DS ---
Physical Exam: LABS Laboratory Results - last 24 hr Lab Results WBC 8.3 K/mm3 (4.0-10.0) 04/26/17 05:35 RBC 4.45 M/mm3 (4.00-5.60) 04/26/17 05:35 Hgb 14.2 GM/dL (11.7-16.9) 04/26/17 05:35 Hct 41.2 % (35.4-49) 04/26/17 05:35 MCV 92.5 fl (80-96) 04/26/17 05:35 MCHC 34.5 g/dl (32.0-35.9) 04/26/17 05:35 RDW 12.9 % (11.9-15.9) 04/26/17 05:35 Plt Count 220 K/MM3 (134-434) 04/26/17 05:35 Sodium 139 mmol/L (136-145) 04/26/17 05:35 Potassium 3.8 mmol/L (3.5-5.1) 04/26/17 05:35 Chloride 102 mmol/L (98-107) 04/26/17 05:35 Carbon Dioxide 29 mmol/L (21-32) 04/26/17 05:35 Anion Gap 8 (8-16) 04/26/17 05:35 BUN 6 mg/dL (7-18) L D 04/26/17 05:35 Creatinine 0.7 mg/dL (0.7-1.3) 04/26/17 05:35 Random Glucose 153 mg/dL (74-106) H 04/26/17 05:35 Calcium 8.7 mg/dL (8.5-10.1) 04/26/17 05:35 Abnormal Lab Results 04/26/17 05:35 BUN 6 L D Random Glucose 153 H Total Bilirubin 1.1 H AST 48 H D Albumin 3.3 L Laboratory Tests 04/25/17 06:25 Hemoglobin A1c % 8.6 H Last Vital Signs Temp Pulse Resp BP Pulse Ox 98.1 F 85 20 159/71 98 04/26/17 14:00 04/26/17 14:00 04/26/17 14:00 04/26/17 10:00 04/25/17 21:00 HOSPITAL COURSE: Date of Admission:04/24/17 Date of Discharge: 04/26/17 51 yo M with PMH of HTN, chronic back pain and nephrolithiasis, who presented to the ED with LLE cellulitis and abscess who failed outpatient therapy on bactrim and keflex. In the ED patient had an I&D of the abscess, which drained minimal purulent fluid and mostly blood. Patient received 1 dose of IV vancomycin in the ED and was admitted and started on IV zosyn. Patient had a CT of the LLE, which showed some subcutaneous edema and no bony involvement. Patient improved on IV zosyn and remained afebrile without any leukocytosis throughout his hospital course. Patient was discharged on a 10 day course of augmentin 875 BID. In addition, patient was found to be hypertensive on admission. Patient has not followed with a PCP for 2 years. He was discharged on lisinopril 20 mg. Finally, patient had an Hba1c of 8.6. Patient was started on Metformin 500mg BID and was discharged on that as well. Minutes to complete discharge: 30 Discharge Summary Reason For Visit: CELLULITIS OF LOWR LEG Condition: Improved - Instructions Diet, Activity, Other Instructions: You were in the hospital due to an infection in your left leg. During your hospitalization, your sugars and blood pressure were found to be elevated. You are being diagnosed with Diabetes Mellitus. Please follow up with a tennis instructor(Dr. Hoyos) and gag writer(Dr. Watson) for preliminary evaluation of your feet and your eyes. Referrals have been provided. Follow up with your primary care provider. If you do not have one, we have provided you a referral for one, Dr. Zambrano. You are being started on medications to control your blood sugars and blood pressure: - Metformin 500mg 1 tablet twice a day - Lisinopril 20mg 1 tablet daily Keep your wound clean and dry. Change the dressing daily as you were taught in the hospital, until seen by a primary care doctor. Continue taking antibiotics by mouth, Augmentin 875mg 1 tablet twice daily for 7 days to complete a 10 day course, you had three days of antibiotics in the hospital. (To be completed 05/03/2017) Take one dose tonight of the antibiotic. If you have chest pain, shortness of breath, fever, worsening of the wound or any other new symptoms, please come back to the hospital immediately. Referrals: Samantha Leyva MD [Staff Physician] - Brayan Hoyos MD [Staff Physician] - Aj Zambrano MD [Staff Physician] - Amor Watson [Staff Physician] - Disposition: HOME - Home Medications Comprehensive Discharge Medication List: Ambulatory Orders Oxycodone HCl/Acetaminophen [Percocet 10-325 mg Tablet] 1 each PO PRN 04/24/17 Acetaminophen [Tylenol .Regular Strength -] 650 mg PO Q6H PRN #0 tablet Amoxicillin/Potassium Clav [Amox-Clav 875-125 mg Tablet] 1 each PO BID #15 tablet 04/26/17 Lisinopril [Prinivil] 20 mg PO DAILY #30 tablet 04/26/17 Metformin HCl [Glucophage -] 500 mg PO BID #60 tablet 04/26/17 This patient is new to me today: No Emergency Visit: No Critical Care patient: No - Discharge Referral Referred to [facility] Yes Physician Referral: Aj Zambrano MD (Int Med)
== END 2017-04-26 15:39 | disposition home or self-care (01) | DRG 580 ==
LOC: JER 11:36 → JERBED 17:44 → J6S 18:25
PROVIDERS: ADMIT Internal Medicine; ATTEND Internal Medicine
PROC: 0J9P0ZZ Drainage of Left Lower Leg Subcutaneous Tissue and Fascia, Open Approach (ICD-10-PCS; principal; 2017-04-24)
DX: L03.116 Cellulitis of left lower limb (principal); Z68.41 Body mass index [BMI] 40.0-44.9, adult; B95.61 Methicillin susceptible Staphylococcus aureus infection as the cause of diseases classified elsewhere; I10 Essential (primary) hypertension; L02.416 Cutaneous abscess of left lower limb; E66.01 Morbid (severe) obesity due to excess calories; Z71.3 Dietary counseling and surveillance; Z87.442 Personal history of urinary calculi; M54.9 Dorsalgia, unspecified; G89.29 Other chronic pain; E11.65 Type 2 diabetes mellitus with hyperglycemia
CPT/HCPCS: 36415; 73701-TC-RT; 80053; 83036; 85025; 85651; 86140; 87040; 87070; 87186; 87205; 93971-TC; 99284-25; J1644